=== PATIENT | female | born 1950 | race African-American/Black ===

== ENCOUNTER 2017-10-16 01:16 | Emergency (ER) | payer MEDICARE, BC ==
[~2017-10-16] VITALS: Ht 177.8 cm; Wt 100.0 kg
[2017-10-16] MEDS ORDERED: NITROGLYCERIN OINT 1GM/INCH UDPKT TD STA (02:16)
[2017-10-16 02:37] LABS: BASOPHILS % 0.9 % (0.0-2.0); EOSINOPHILS % 4.3 % (0.0-5.0); HEMATOCRIT. 34.7 % (36.0-48.0); LYMPHOCYTES % 46.2 % (20.0-50.0); MEAN CORPUSCULAR HEMOGLOBIN 27.2 pg (28.0-32.0); MEAN CORPUSCULAR VOLUME 85.6 fL (81.0-99.0); MEAN PLATELET VOLUME 7.8 fl (7.4-10.4); MONOCYTES % 12.5 % (2.0-8.0); NEUTROPHILS % 36.1 % (40.0-76.0); PLATELET 278 x1000/uL (130-400); RED BLOOD CELL COUNT 4.05 mill/uL (4.2-5.4); RED CELL DISTRIBUTION WIDTH 14.2 % (11.6-14.6)
[2017-10-16 02:42] LABS: CHLORIDE 105 mEq/L (98-107)
[2017-10-16 04:05] VITALS: BP 170/89
== END 2017-10-16 06:04 | disposition left against medical advice (07) ==
LOC: ER 01:18 → EDBEDREQ 02:30 → EDBEDREQTM 05:02 → EDBEDREQ 05:02 → ER 06:04 → ENRESERV 07:23 → CANRESERV 07:23 → CANBEDREQ 18:12
DX: R07.89 Other chest pain (principal); R79.1 Abnormal coagulation profile; I44.0 Atrioventricular block, first degree; I10 Essential (primary) hypertension; M79.7 Fibromyalgia; Z96.649 Presence of unspecified artificial hip joint; Z88.5 Allergy status to narcotic agent
CPT/HCPCS: 36415; 71045; 80053; 83880; 84484; 85025; 85379; 93005; 93970; 99291

== ENCOUNTER 2024-03-01 13:06 | Emergency (ER) | payer BC, MEDICAID, MEDICARE ==
[~2024-03-01] VITALS: Ht 170.2 cm; Wt 85.0 kg
[2024-03-01 13:11] VITALS: BP 149/80; PULSE 70; RESP 18; TEMP 98.1; O2SAT 98
[2024-03-01] MEDS ORDERED: ASPIRIN 325MG EC TABLET PO ONE (13:15)
[2024-03-01 14:02] LABS: EOSINOPHILS % 3.6 % (0.0-5.0); HEMATOCRIT. 32.2 % (36.0-48.0); LYMPHOCYTES % 22.9 % (20.0-50.0); MEAN CORPUSCULAR HGB CONC 30.9 g/dL (31.0-37.0); MEAN CORPUSCULAR VOLUME 93.7 fL (81.0-99.0); MEAN PLATELET VOLUME 7.6 fl (7.4-10.4); MONOCYTES % 12.7 % (2.0-8.0); NEUTROPHILS % 59.8 % (40.0-76.0); PLATELET 219 x1000/uL (130-400); RED BLOOD CELL COUNT 3.43 mill/uL (4.2-5.4); RED CELL DISTRIBUTION WIDTH 16.4 % (11.6-14.6); WHITE BLOOD COUNT 3.4 x1000/uL (4.5-11.0)
[2024-03-01 14:08] LABS: CARBON DIOXIDE 28 mEq/L (21-32); CHLORIDE 107 mEq/L (98-107); POTASSIUM 3.6 mEq/L (3.5-5.1); SODIUM 142 mEq/L (136-145)
[2024-03-01 14:09] LABS: CALCIUM 9.7 mg/dL (8.7-10.4)
[2024-03-01 14:13] LABS: CREATININE 1.2 mg/dL (0.6-1.0); TROPONIN I HIGH SENSITIVITY 13 ng/L (3.0-34)
[2024-03-01 14:14] LABS: GLUCOSE 103 mg/dL (70-105); UREA NITROGEN BLOOD 16 mg/dL (9-23)
[2024-03-01 14:15] LABS: ALANINE AMINOTRANSFERASE 35 IU/L (10-49); ALBUMIN 4.5 g/dL (3.2-4.8); ASPARTATE AMINOTRANSFERASE 32 IU/L (<34)
[2024-03-01 14:16] LABS: BILIRUBIN DIRECT 0.1 mg/dL (<=3.0); BILIRUBIN TOTAL 0.4 mg/dL (0.1-1.0); PROTEIN TOTAL 7.2 g/dL (6.0-8.3)
[2024-03-01 14:18] LABS: PROTHROMBIN TIME 11.6 sec (9.6-11.0)
[2024-03-01] MEDS ORDERED: ACETAMINOPHEN 325MG TABLET PO PRN ×2 (20:45)
[2024-03-01] MEDS ORDERED: MAGNESIUM/ALUMINUM HYDROXIDE/SIMETHICONE 30ML UDC PO PRN (20:45)
[2024-03-01] MEDS ORDERED: ZOLPIDEM TARTRATE 5MG TABLET PO PRN (20:45)
[2024-03-01] MEDS ORDERED: ONDANSETRON HCL 4MG/2ML INJ IV PRN (20:45)
[2024-03-01] MEDS ORDERED: GUAIFENESIN 200MG/10ML SUGAR FREE UDC PO PRN (20:45)
[2024-03-01] MEDS ORDERED: NITROGLYCERIN 0.4MG TABLET SL SL PRN (20:45)
[2024-03-01] MEDS ORDERED: KETOROLAC 15MG/ML VIAL IV PRN (20:45)
[2024-03-01] MEDS ORDERED: DOCUSATE SODIUM 100MG CAPSULE PO PRN (20:45)
[2024-03-01] MEDS ORDERED: CLONIDINE 0.1MG TABLET PO PRN (20:45)
[2024-03-01] MEDS ORDERED: IPRATROPIUM/ALBUTEROL 0.5-3(2.5)MG/3ML NEB NEB PRN (20:45)
[2024-03-01] MEDS ORDERED: ENOXAPARIN 40MG/0.4ML SYR SUBCUT SCH (21:00)
[2024-03-01] MEDS ORDERED: FAMOTIDINE 20MG TABLET PO SCH (21:00)
[2024-03-01 21:32] LABS: IRON 86 ug/dL (50-170)
[2024-03-01 21:33] LABS: LDL CHOLESTEROL 50 mg/dL (5-100); TRIGLYCERIDE 69 mg/dL (0-150)
[2024-03-01 21:35] LABS: CHOLESTEROL 131 mg/dL (<200); HDL CHOLESTEROL 68 mg/dL (>65); TOTAL IRON BINDING CAPACITY 206 ug/dl (250-425)
[2024-03-01 21:37] LABS: THYROID STIMULATING HORMONE 1.26 uIU/mL (0.55-4.78)
[2024-03-01 21:38] LABS: FOLIC ACID (FOLATE) SERUM > 20.00 ng/mL (>5.38)
[2024-03-01 21:46] LABS: VITAMIN B12 SERUM > 2000 pg/mL (211-911)
[2024-03-01] MEDS ORDERED: NITROGLYCERIN OINT 1GM/INCH UDPKT TD SCH (22:00)
[2024-03-02] MEDS ORDERED: ASPIRIN 81MG EC TABLET PO SCH (09:00)
== END 2024-03-01 23:00 | disposition left against medical advice (07) ==
LOC: EDBEDREQ 13:30 → ER 14:23 → EDBEDREQ 16:24 → ER 23:00
DX: I20.89 Other forms of angina pectoris (principal); I25.2 Old myocardial infarction; I10 Essential (primary) hypertension; Z88.5 Allergy status to narcotic agent; Z86.73 Personal history of transient ischemic attack (TIA), and cerebral infarction without residual deficits
CPT/HCPCS: 36415; 71045; 80048; 80061; 80076; 82607; 82746; 83036; 83540; 83550; 84439; 84443; 84484; 85025; 93005; 99291